=== PATIENT | female | born 1990 | race American Indian/Alaskan Native ===

== ENCOUNTER 2017-10-30 13:43 | Day surgery (SDC) | payer MEDICAID ==
[2017-10-30] MEDS ORDERED: NACL 0.9% 1000 ML 1,000 ML ONE (14:17)
[2017-10-30] MEDS ORDERED: TRIPLE ANTIBIOTIC TP ONE ×2 (16:24→17:45)
--- NOTE | 2017-10-30 17:13 | Anesthesia Consultation ---
Anesthesia Consult and Med Hx Date of service: 10/30/17 - Airway Anesthetic Teeth Evaluation: Poor ROM Head & Neck: Adequate Mental/Hyoid Distance: Adequate Intubation Access Assessment: Good (Extensive airway evaluation not necessary since a trach is in placer) - Pulmonary Exam CTA: Yes - Cardiac Exam Cardiac Exam: RRR - Pre-Operative Health Status ASA Pre-Surgery Classification: ASA4 Proposed Anesthetic Plan: MAC - Pre-Anesthesia Comment Pre-Anesthesia Comments: Patient can not talk and the winterizer indicates that she does not know anything about her medical history - Pulmonary Hx Respiratory Symptoms: Yes (trach collar in place) - Cardiovascular System Hx Hypertension: Yes (winterizer indicates that the patien took metoprolol as directed) Hx Peripheral Vascular Disease: Yes - Central Nervous System Hx Seizures: Yes CVA: Yes - Gastrointestinal Hx Gastroesophageal Reflux Disease: Yes (dysphagia) - Hematic Hx Anemia: Yes - Additional Comments Anesthesia Medical History Comments: This is a [facility] patient. The patient 's nurse read the diagnoses to me but could not provide any further information.
--- NOTE | 2017-10-30 17:27 | Anesthesia Day of Surgery ---
Anesthesia Day of Surgery - Day of Surgery Patient Examined: Yes Patient H&P Reviewed: Yes Patient is NPO: Yes Beta Blockers: Yes Cardiac Clearance: Yes Pulmonary Clearance: Yes Kevin's Test: N/A
[2017-10-30] MEDS ORDERED: DIPRIVAN 10 MG/ML IV ONE (17:29)
--- NOTE | 2017-10-30 18:14 | Operative Report ---
Operative Report Operative Report: Operative Report: Date of procedure: 10/30/2017 Procedure: Esophagogastroduodenoscopy with percutaneous endoscopic gastrostomy tube placement Attending physician: Luis E Pereira MD Instrumentation Fitter: Luis E Pereira MD Indication: Patient is a 26-year-old female who presented with a history of cerebrovascular disease who presents with gastrostomy tube malfunction. An upper endoscopy is done to place a percutaneous endoscopic gastrostomy tube for enteral feeding and administration of medications. Consent: Informed consent was obtained after advising the patients family regarding nature of this procedure, its indications, potential benefits as well as possible complications including but not limited to bleeding perforation and adverse reaction to medication, infection as well as other cardiopulmonary complications. An informed written and verbal consent was then obtained after due opportunity was provided for questions and answers. Monitoring: Patient was monitored continuously with pulse oximetry and electrocardiographic recordings as well as blood pressure recordings. Vital signs remained stable throughout this procedure with no untoward events. Preoperative assessment: Patient was assessed immediately prior to this procedure for capacity to tolerate monitored anesthesia care and moderate sedation as well as general anesthesia. Patient's ASA classification is 3, Mallampati class is 2, Hyomental distance is 3. Instrument: [employer] video endoscope. 20 [place] percutaneous endoscopic gastrostomy tube kit Medications: Propofol given intravenously in divided doses. For details please refer to anesthesia records. Ancef 1 g given intravenously immediately prior to beginning of procedure Description of procedure: Patient was placed in a supine position after achieving sedation, the endoscope was introduced into the esophagus under direct vision. It was then advanced beyond the esophagus into the stomach and then beyond the stomach into the duodenum and to the second portion of the duodenum. It was subsequently withdrawn with careful inspection of all mucosal surfaces with the following findings. Subsequently, a precise location for the placement of the percutaneous endoscopic gastrostomy tube was identified by removing the malfunctioning rashid catheter and placing a wide wire which was grasped with a snare. Following this, a 20 [place] percutaneous endoscopic gastrostomy tube was successfully placed using the Ponsky pull-through method. The following endoscopic findings were noted. Findings: Esophagus was normal. There were mucosal changes suggestive of gastritis in the gastric antrum. A 20 [place] percutaneous endoscopic gastrostomy tube was successfully placed. The duodenum was normal to the second portion. Impression: Esophagogastroduodenoscopy with successful placement of a 20 [place] percutaneous endoscopic gastrostomy tube. Plan: The tube site is currently at 3.0 cm. It should be cleaned daily with Betadine and peroxide. Triple Antibiotic should be applied daily to the site with dry gauze dressing a for at least 2-3 weeks. The tube site should be carefully inspected daily for any redness or discharge. The tube should be flushed with 100 mL of water every 6 hours. The tube should also be flushed additionally after administration medications or after completing a feeding session. Tube may be used for enteral feeding immediately. The tube may be used immediately for administration of medications. If the tube is accidentally dislodged, a biomedical electronics technician should be notified immediately. The advice however and recommendation is to begin tube feeding at a slow rate of 30 mL per hour and gradually increase as may be instructed after 8 hours. Residuals from the feeding tube should be checked every 3 hours for at least 24- 36 hours. If patient tolerates feeding, the feeding volume should be optimized as may advised by the dietitian. If patient has high residuals, then caution should be used in increasing the feeding rate to avoid aspiration. The head of the bed should be kept at 30 always.
--- NOTE | 2017-10-30 18:15 | Discharge Summary ---
Short Stay Discharge Plan Activity: fall precautions Weight Bearing Status: Partial Weight Bearing Diet: other (Begin tube feeding) Follow up with: LOW DELATORRE MD [Primary Care Provider] - 7 Days
[2017-10-30 18:26] VITALS: BP 99/44
== END 2017-10-30 13:44 | disposition home or self-care (01) ==
LOC: GIO 13:43
PROVIDERS: ATTEND Internal Medicine Gastroenterology
DX: K94.23 Gastrostomy malfunction (principal); K21.9 Gastro-esophageal reflux disease without esophagitis; I10 Essential (primary) hypertension; I73.9 Peripheral vascular disease, unspecified; Z86.73 Personal history of transient ischemic attack (TIA), and cerebral infarction without residual deficits; Z79.82 Long term (current) use of aspirin; Y83.3 Surgical operation with formation of external stoma as the cause of abnormal reaction of the patient, or of later complication, without mention of misadventure at the time of the procedure
CPT/HCPCS: 43246; J2704; J7030; A6250